=== PATIENT | male | born 1985 | race Two or more races ===

== ENCOUNTER 2023-11-28 10:39 | Emergency (ER) | payer OTHER, SELFPAY ==
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
[2023-11-28 10:49] VITALS: BP 121/68; BP 128/58; PULSE 64; PULSE 91; RESP 14; TEMP 36.4; O2SAT 99; BMI 24.4
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
[2023-11-28] MEDS: Lidocaine HCl 1 % MPF 5 ML VIAL INFILTRATI ×2 (15:40)
[2023-11-28 16:10] VITALS: BP 128/61; PULSE 56; RESP 16; TEMP 37.1; O2SAT 98
[2023-11-28] MEDS: Ibuprofen 400 MG TABLET PO (16:27)
[2023-11-28] MEDS: Morphine Sulfate Immed Release 15 MG TABLET PO (16:28)
[2023-11-28] MEDS: Bacitracin Oint 0.9 GM PACKET 1 APPL TOPICAL (16:54)
[2023-11-28] MEDS: cephALEXin 500 MG CAPSULE PO (16:54)
== END 2023-11-28 17:00 | disposition home or self-care (01) ==
PROVIDERS: Emergency Provider Emergency Medicine Emergency Medical Services
DX: S01.312A Laceration without foreign body of left ear, initial encounter (principal); R51.9 Headache, unspecified; R42 Dizziness and giddiness; Y04.2XXA Assault by strike against or bumped into by another person, initial encounter; Y93.9 Activity, unspecified; Y92.9 Unspecified place or not applicable; Y99.8 Other external cause status
CPT/HCPCS: 12011; 70450; 70486; 99283; 99284